=== PATIENT | male | born 1960 | race Caucasian/White ===

== ENCOUNTER 2018-02-14 09:59 | Inpatient (IN) | payer MEDICARE ==
[2018-02-14] MEDS: SODIUM CHLORIDE 0.9% 1L BAG IV* (10:22)
[2018-02-14] MEDS: CEFEPIME 2GM/50 ML (PMX) 50 ML IVPB (10:23)
[2018-02-14] MEDS: ACETAMINOPHEN 650 MG SUPP PR (10:24)
[2018-02-14] MEDS: LIDOCAINE 1% (MPF) 5 ML VIAL SC (10:30)
[2018-02-14] MEDS: VANCOMYCIN 1 GM (PMX) 250 ML IVPB (10:31)
[2018-02-14 10:39] LABS: WHITE BLOOD COUNT 14.4 10^3/ul (4.8-10.8)
[2018-02-14 10:39] LABS: ABNORMAL IP MESSAGE 1; HEMATOCRIT 15.4 % (42.0-52.0); MEAN CORPUSCULAR HEMOGLOBIN 36.4 pg (29.0-33.0); MEAN CORPUSCULAR HGB CONC 31.2 g/dl (32.0-37.0); MEAN CORPUSCULAR VOLUME 116.7 fl (82.0-101.0); MEAN PLATELET VOLUME 13.1 fl (7.4-10.4); NUCLEATED RED BLOOD CELLS% 0.8 /100WBC (0.0-0.0); PLATELET COUNT 130 10^3/UL (140-415); POSITIVE DIFF @See below; RED BLOOD COUNT 1.32 10^6/ul (4.70-6.10); RED CELL DISTRIBUTION WIDTH 24.6 % (11.5-14.5)
[2018-02-14 10:47] LABS: AADO2 Arterial 118.8 mmHg (7.0-24.0); Allen Test ACCEPTAB; Arterial Base Excess -8.9 mmol/L (-3.0-3); Arterial Blood Gas Oxygen Sat 98.5 mmHG (95.0-98.0); Arterial COHb 0.3 % (0.0-3.0); Arterial Fraction of Oxyhgb 97.7 % (93.0-99.0); Arterial HCO3 14.7 mmol/L (22.0-26.0); Arterial MetHb 0.5 % (0.0-1.5); Arterial Total Hemglobin 8.1 g/dl (12.0-18.0); Arterial pCO2 24.1 mmhg (35-45); MODE VENT - AC; Site Left Radial
[2018-02-14 10:48] LABS: ADD MAN DIFF? YES; HEMOGLOBIN 4.8 g/dl (14.0-18.0)
[2018-02-14] MEDS: SOD CHLORIDE 0.9% 250 ML IV* ×2 (10:55→11:09)
[2018-02-14 10:59] LABS: ALANINE AMINOTRANSFERASE 28 IU/L (13-69); ALBUMIN 2.2 g/dl (3.3-4.9); ALBUMIN/GLOBULIN RATIO 0.62; ALKALINE PHOSPHATASE 267 IU/L (42-121); ANION GAP 21 (8-16); ASPARTATE AMINO TRANSFERASE 28 IU/L (15-46); BILIRUBIN,INDIRECT 0.1 mg/dl (0-1.1); BILIRUBIN,TOTAL 0.1 mg/dl (0.2-1.3); BLOOD UREA NITROGEN 117 mg/dl (7-20); CALCIUM 8.6 mg/dl (8.4-10.2); CARBON DIOXIDE 17 mmol/L (21-31); CHLORIDE 111 mmol/L (97-110); CREATININE 3.13 mg/dl (0.61-1.24); GLUCOSE 148 mg/dl (70-220); POTASSIUM 5.4 mmol/L (3.5-5.1); SODIUM 144 mmol/L (135-144); TOTAL PROTEIN 5.7 g/dl (6.1-8.1)
[2018-02-14 11:00] LABS: INR 1.68; PARTIAL THROMBOPLASTIN TIME 42.3 Sec (23.0-35.0); PROTIME 20.1 Sec (11.9-14.9); PT RATIO 1.6
[2018-02-14 11:01] LABS: LACTIC ACID 2.6 mmol/L (0.5-2.0)
[2018-02-14 11:05] LABS: ADD UMIC YES; UR ASCORBIC ACID 20 mg/dL (NEGATIVE); UR BACTERIA FEW /HPF (NONE SEEN); UR BILIRUBIN (Dip) NEGATIVE (NEGATIVE); UR BLOOD (Dip) NEGATIVE (NEGATIVE); UR BUDDING YEAST MANY /HPF (NONE SEEN); UR CLARITY SLIGHTLY CLOUDY (CLEAR); UR COLOR YELLOW (YELLOW); UR GLUCOSE (Dip) NEGATIVE (NEGATIVE); UR KETONES (Dip) NEGATIVE (NEGATIVE); UR LEUKOCYTE ESTERASE (Dip) 2+ Leu/ul (NEGATIVE); UR MUCUS FEW /HPF (NONE SEEN); UR NITRITE (Dip) NEGATIVE (NEGATIVE); UR RBC 13 /HPF (0-5); UR SPECIFIC GRAVITY (Dip) 1.013 (1.003-1.030); UR TOTAL PROTEIN (Dip) 2+ mg/dl (NEGATIVE); UR UROBILINOGEN (Dip) NEGATIVE (NEGATIVE); UR WBC 45 /HPF (0-5)
[2018-02-14 11:07] LABS: BAND NEUTROPHILS #M 2.7 10^3/ul (0.0-0.6); BAND NEUTROPHILS % (M) 19 % (0-4); LYMPHOCYTES #M 0.2 10^3/ul (0.8-2.9); LYMPHOCYTES % (M) 2 % (15-51); MONOCYTE #M 0.1 10^3/ul (0.3-0.9); MONOCYTES % (M) 1 % (0-11); MYELOCYTES #M 0.2 10^3/ul (0.0-0.0); MYELOCYTES % (M) 2 % (0-0); PROMYELOCYTES #M 0.1 10^3/ul (0-0); PROMYELOCYTES % (M) 1 % (0-0); SEG NEUT #M 11.2 10^3/ul (1.6-7.5); SEGMENTED NEUTROPHILS (M) % 75 % (39-77)
[2018-02-14 11:10] LABS: TROPONIN-I < 0.012 ng/ml (0.000-0.120)
[2018-02-14] MEDS ORDERED: SOD CHLORIDE 0.9% 1,000 ML IV (11:19)
[2018-02-14] MEDS ORDERED: DOCUSATE SODIUM 100 MG CAP PO (11:30)
[2018-02-14] MEDS ORDERED: VANCOMYCIN IV PER PHARMACY XX ×2 (11:30→14:00)
[2018-02-14] MEDS ORDERED: NACL 0.9% 3 ML SYG IV (11:30)
[2018-02-14] MEDS ORDERED: ACETAMINOPHEN 650 MG SUPP PR (11:30)
[2018-02-14] MEDS ORDERED: ONDANSETRON 4 MG INJ IV (11:30)
[2018-02-14] MEDS ORDERED: MAGNESIUM HYDROXIDE 30ML CUP PO (11:30)
[2018-02-14] MEDS: SOD CHLORIDE 0.9% 1,800 ML IV (11:30)
[2018-02-14] MEDS ORDERED: morphine 2 MG INJ IV (11:30)
[2018-02-14] MEDS ORDERED: BISACODYL 10 MG SUPP PR (11:30)
[2018-02-14 12:06] LABS: CREATININE,URINE RANDOM 19.32 mg/dl (20-370); PROTEIN/CREAT RATIO 5.12 RATIO
[2018-02-14 13:00] LABS: IMMEDIATE SPIN CROSSMATCH 1 6
[2018-02-14] MEDS: LACTATED RINGER'S 1,000 ML IV (13:53)
[2018-02-14] MEDS: ALBUTEROL/IPRATROPIUM (NEB) 3 ML AMP HHN ×2 (14:00→19:32)
[2018-02-14 14:10] LABS: SODIUM,URINE RANDOM 29 mmol/L (30-90)
[2018-02-14] MEDS: MIDODRINE 5 MG TAB GTB ×2 (14:28→22:41)
[2018-02-14] MEDS: CASPOFUNGIN 70 MG in SOD CHLORIDE 0.9% 250 ML IVPB (14:28)
[2018-02-14] MEDS: MEROPENEM 500MG/50 ML (PMX) 50 ML IVPB ×2 (14:28→22:41)
[2018-02-14] MEDS: NORepinephrine 8MG/250 ML (PMX 250 ML IV (14:58)
[2018-02-14] MEDS: SODIUM BICARBONATE (IV ADD) 100 MEQ in DEXTROSE 5% 1,000 ML IV (15:35)
[2018-02-14 15:37] LABS: IRON 31 ug/dl (35-150)
[2018-02-14 15:46] LABS: % IRON SATURATION 26 % SAT (22-52); TOTAL IRON BINDING CAPACITY 120 ug/dl (241-421)
[2018-02-14] MEDS: FUROSEMIDE 40 MG INJ IV (16:08)
[2018-02-14] MEDS: INFLUENZA VIRUS VACCINE 0.5 ML (DISPENSING) IM* (17:27)
[2018-02-14 19:33] LABS: LACTIC ACID 2.6 mmol/L (0.5-2.0)
[2018-02-14] MEDS: BUDESONIDE (NEB) 0.5MG/2ML AMP HHN (19:33)
[2018-02-14 21:46] LABS: ABNORMAL IP MESSAGE 1; HEMATOCRIT 25.6 % (42.0-52.0); HEMOGLOBIN 8.4 g/dl (14.0-18.0); MEAN CORPUSCULAR HEMOGLOBIN 32.7 pg (29.0-33.0); MEAN CORPUSCULAR HGB CONC 32.8 g/dl (32.0-37.0); MEAN CORPUSCULAR VOLUME 99.6 fl (82.0-101.0); MEAN PLATELET VOLUME 13.1 fl (7.4-10.4); NUCLEATED RED BLOOD CELLS% 0.7 /100WBC (0.0-0.0); PLATELET COUNT 120 10^3/UL (140-415); POSITIVE DIFF @See below; RED BLOOD COUNT 2.57 10^6/ul (4.70-6.10); RED CELL DISTRIBUTION WIDTH 21.3 % (11.5-14.5)
[2018-02-14 21:46] LABS: WHITE BLOOD COUNT 13.6 10^3/ul (4.8-10.8)
[2018-02-14 21:51] LABS: ADD MAN DIFF? YES
[2018-02-14] MEDS ORDERED: CEFEPIME 2GM/50 ML (PMX) 50 ML IVPB (22:00)
[2018-02-14 22:08] LABS: LACTIC ACID 2.4 mmol/L (0.5-2.0)
[2018-02-14 22:24] LABS: ANISOCYTOSIS 2+ (0-0); BAND NEUTROPHILS #M 0.9 10^3/ul (0.0-0.6); BAND NEUTROPHILS % (M) 7 % (0-4); BASOPHIL #M 0.1 10^3/ul (0.0-0.0); BASOPHILS % (M) 1 % (0-2); EOSINOPHILS % (M) 1 % (0-7); ERYTHROBLAST% (NRBC) (M) 1 % (0-0); GIANT THROMBO% (M) 2 % (0-0); LYMPHOCYTES #M 0.4 10^3/ul (0.8-2.9); LYMPHOCYTES % (M) 3 % (15-51); METAMYELOCYTES #M 0.1 10^3/ul (0.0-0.0); METAMYELOCYTES %M 1 % (0-0); MONOCYTE #M 0.1 10^3/ul (0.3-0.9); MONOCYTES % (M) 1 % (0-11); MYELOCYTES #M 0.1 10^3/ul (0.0-0.0); MYELOCYTES % (M) 1 % (0-0); POIKILOCYTOSIS 1+ (0-0); PROMYELOCYTES #M 0.1 10^3/ul (0-0); PROMYELOCYTES % (M) 1 % (0-0); SEG NEUT #M 11.5 10^3/ul (1.6-7.5); SEGMENTED NEUTROPHILS (M) % 84 % (39-77); SMUDGE%M 52 % (0-0)
[2018-02-15] MEDS: SODIUM BICARBONATE (IV ADD) 100 MEQ in DEXTROSE 5% 1,000 ML IV ×3 (00:17→18:28)
[2018-02-15] MEDS: ALBUTEROL/IPRATROPIUM (NEB) 3 ML AMP HHN ×4 (01:27→19:07)
[2018-02-15 05:01] LABS: AADO2 Arterial 87.4 mmHg (7.0-24.0); Arterial Base Excess -7.3 mmol/L (-3.0-3); Arterial Blood Gas Oxygen Sat 96.4 mmHG (95.0-98.0); Arterial COHb 0.4 % (0.0-3.0); Arterial Fraction of Oxyhgb 95.6 % (93.0-99.0); Arterial HCO3 16.8 mmol/L (22.0-26.0); Arterial MetHb 0.4 % (0.0-1.5); Arterial Total Hemglobin 9.1 g/dl (12.0-18.0); Arterial pCO2 28.7 mmhg (35-45); MODE VENT - AC; Site Right Brachial
[2018-02-15 05:31] LABS: ADD MAN DIFF? NO
[2018-02-15 05:54] LABS: ABNORMAL IP MESSAGE 1; BASOPHILS % 0.2 % (0.0-2.0); EOSINOPHILS % 0.2 % (0.0-7.0); HEMATOCRIT 24.6 % (42.0-52.0); HEMOGLOBIN 8.2 g/dl (14.0-18.0); LYMPHOCYTES # 0.3 10^3/ul (0.8-2.9); LYMPHOCYTES % 2.5 % (15.0-51.0); MEAN CORPUSCULAR HEMOGLOBIN 32.9 pg (29.0-33.0); MEAN CORPUSCULAR HGB CONC 33.3 g/dl (32.0-37.0); MEAN CORPUSCULAR VOLUME 98.8 fl (82.0-101.0); MONOCYTE # 0.4 10^3/ul (0.3-0.9); MONOCYTES % 3.2 % (0.0-11.0); NEUTROPHIL # 11.1 10^3/ul (1.6-7.5); NEUTROPHILS % 85.6 % (39.0-77.0); NUCLEATED RED BLOOD CELLS # 0.1 10^3/ul (0.0-0.0); NUCLEATED RED BLOOD CELLS% 0.5 /100WBC (0.0-0.0); PLATELET COUNT 106 10^3/UL (140-415); POSITIVE DIFF @See below; RED BLOOD COUNT 2.49 10^6/ul (4.70-6.10); RED CELL DISTRIBUTION WIDTH 21.9 % (11.5-14.5)
[2018-02-15 05:55] LABS: INR 1.79; PROTIME 21.2 Sec (11.9-14.9); PT RATIO 1.7
[2018-02-15 06:05] LABS: HEMOGLOBIN A1C 5.3 % (0-5.9)
[2018-02-15] MEDS: PANTOPRAZOLE 40 MG INJ IV (06:05)
[2018-02-15] MEDS: MIDODRINE 5 MG TAB GTB ×3 (06:05→21:27)
[2018-02-15] MEDS: LEVOTHYROXINE 88 MCG TAB PO (06:14)
[2018-02-15 06:16] LABS: LACTIC ACID 2.1 mmol/L (0.5-2.0)
[2018-02-15 06:25] LABS: URIC ACID 6.3 mg/dl (3.1-7.9)
[2018-02-15 06:27] LABS: CREATINE KINASE < 20 IU/L (23-200)
[2018-02-15 06:36] LABS: ALANINE AMINOTRANSFERASE 17 IU/L (13-69); ALBUMIN/GLOBULIN RATIO 0.58; ALKALINE PHOSPHATASE 217 IU/L (42-121); ANION GAP 16 (8-16); ASPARTATE AMINO TRANSFERASE 26 IU/L (15-46); BILIRUBIN,INDIRECT 0.2 mg/dl (0-1.1); BILIRUBIN,TOTAL 0.2 mg/dl (0.2-1.3); BLOOD UREA NITROGEN 102 mg/dl (7-20); CALCIUM 8.4 mg/dl (8.4-10.2); CARBON DIOXIDE 19 mmol/L (21-31); CHLORIDE 112 mmol/L (97-110); CREATININE 2.89 mg/dl (0.61-1.24); GLUCOSE 116 mg/dl (70-220); HDL CHOLESTEROL 8 mg/dl (30-78); MAGNESIUM 2.4 mg/dl (1.7-2.5); PHOSPHORUS 8.3 mg/dl (2.5-4.9); POTASSIUM 4.1 mmol/L (3.5-5.1); SODIUM 143 mmol/L (135-144); TOTAL PROTEIN 5.4 g/dl (6.1-8.1); TRIGLYCERIDES 122 mg/dl (0-149)
[2018-02-15 06:37] LABS: CHOLESTEROL < 50 mg/dl (100-200)
[2018-02-15 06:38] LABS: FREE THYROXINE INDEX (Calc) 2.03 ug/ml (0.65-3.89); T3 UPTAKE 52.1 % (23.5-40.5); T4 (THYROXINE) 3.9 ug/dl (5.5-11.0)
[2018-02-15 06:52] LABS: THYROID STIMULATING HORMONE 0.732 MIU/L (0.465-4.680)
[2018-02-15 07:31] LABS: ANISOCYTOSIS 2+ (0-0); BAND NEUTROPHILS #M 3.3 10^3/ul (0.0-0.6); BAND NEUTROPHILS % (M) 26 % (0-4); BASOPHIL #M 0.1 10^3/ul (0.0-0.0); BASOPHILS % (M) 1 % (0-2); ERYTHROBLAST% (NRBC) (M) 2 % (0-0); HYPOCHROMASIA 1+ (0-0); LYMPHOCYTES #M 0.3 10^3/ul (0.8-2.9); LYMPHOCYTES % (M) 3 % (15-51); METAMYELOCYTES #M 0.2 10^3/ul (0.0-0.0); METAMYELOCYTES %M 2 % (0-0); MICROCYTOSIS 1+ (0-0); MONOCYTE #M 0.2 10^3/ul (0.3-0.9); MONOCYTES % (M) 2 % (0-11); MYELOCYTES #M 0.2 10^3/ul (0.0-0.0); MYELOCYTES % (M) 2 % (0-0); PLATELET ESTIMATE DECREASED; POIKILOCYTOSIS 1+ (0-0); POLYCHROMASIA 1+ (0-0); PROMYELOCYTES #M 0.2 10^3/ul (0-0); PROMYELOCYTES % (M) 2 % (0-0); REACTIVE LYMPHOCYTES #M 0.5 10^3/ul (0.0-0.0); REACTIVE LYMPHOCYTES% (M) 4 % (0-0); SEGMENTED NEUTROPHILS (M) % 58 % (39-77); TARGET CELLS 1+ (0-0)
[2018-02-15] MEDS: BUDESONIDE (NEB) 0.5MG/2ML AMP HHN ×2 (08:12→19:07)
[2018-02-15] MEDS: LACTOBACILLUS RHAMNOSUS CAP GTB (08:36)
[2018-02-15] MEDS: MEROPENEM 500MG/50 ML (PMX) 50 ML IVPB ×2 (08:36→21:24)
[2018-02-15] MEDS: CASPOFUNGIN 50 MG in SOD CHLORIDE 0.9% 250 ML IVPB (14:29)
[2018-02-15] MEDS: VANCOMYCIN 750 MG in SOD CHLORIDE 0.9% 150 ML IVPB (22:54)
[2018-02-16] MEDS: ALBUTEROL/IPRATROPIUM (NEB) 3 ML AMP HHN ×3 (01:00→14:56)
[2018-02-16 04:06] LABS: OCCULT BLOOD STOOL POSITIVE (NEGATIVE)
[2018-02-16 05:15] LABS: ADD MAN DIFF? NO
[2018-02-16 05:19] LABS: ABNORMAL IP MESSAGE 1; BASOPHILS % 0.2 % (0.0-2.0); EOSINOPHILS # 0.1 10^3/ul (0.0-0.5); EOSINOPHILS % 0.4 % (0.0-7.0); HEMATOCRIT 22.4 % (42.0-52.0); HEMOGLOBIN 7.4 g/dl (14.0-18.0); LYMPHOCYTES # 0.9 10^3/ul (0.8-2.9); LYMPHOCYTES % 6.6 % (15.0-51.0); MEAN CORPUSCULAR HEMOGLOBIN 32.6 pg (29.0-33.0); MEAN CORPUSCULAR VOLUME 98.7 fl (82.0-101.0); MEAN PLATELET VOLUME 12.5 fl (7.4-10.4); MONOCYTE # 0.2 10^3/ul (0.3-0.9); MONOCYTES % 1.2 % (0.0-11.0); NEUTROPHIL # 10.9 10^3/ul (1.6-7.5); NEUTROPHILS % 84.3 % (39.0-77.0); NUCLEATED RED BLOOD CELLS% 0.2 /100WBC (0.0-0.0); PLATELET COUNT 93 10^3/UL (140-415); POSITIVE DIFF @See below; RED BLOOD COUNT 2.27 10^6/ul (4.70-6.10)
[2018-02-16] MEDS: PANTOPRAZOLE 40 MG INJ IV (05:23)
[2018-02-16] MEDS: MIDODRINE 5 MG TAB GTB ×3 (05:23→21:24)
[2018-02-16 06:03] LABS: ALANINE AMINOTRANSFERASE 32 IU/L (13-69); ALBUMIN 1.9 g/dl (3.3-4.9); ALBUMIN/GLOBULIN RATIO 0.57; ALKALINE PHOSPHATASE 222 IU/L (42-121); ANION GAP 13 (8-16); ASPARTATE AMINO TRANSFERASE 24 IU/L (15-46); BILIRUBIN,INDIRECT 0.1 mg/dl (0-1.1); BILIRUBIN,TOTAL 0.1 mg/dl (0.2-1.3); BLOOD UREA NITROGEN 97 mg/dl (7-20); CALCIUM 8.4 mg/dl (8.4-10.2); CARBON DIOXIDE 22 mmol/L (21-31); CHLORIDE 109 mmol/L (97-110); GLUCOSE 93 mg/dl (70-220); POTASSIUM 3.4 mmol/L (3.5-5.1); SODIUM 141 mmol/L (135-144); TOTAL PROTEIN 5.2 g/dl (6.1-8.1)
[2018-02-16] MEDS: LEVOTHYROXINE 88 MCG TAB PO (08:10)
[2018-02-16] MEDS: LACTOBACILLUS RHAMNOSUS CAP GTB (08:11)
[2018-02-16] MEDS: MEROPENEM 500MG/50 ML (PMX) 50 ML IVPB (08:11)
[2018-02-16] MEDS: BUDESONIDE (NEB) 0.5MG/2ML AMP HHN ×2 (09:05→19:00)
[2018-02-16] MEDS: SODIUM BICARBONATE (IV ADD) 100 MEQ in DEXTROSE 5% 1,000 ML IV ×2 (09:25→23:10)
[2018-02-16 10:49] LABS: ANISOCYTOSIS 1+ (0-0); BAND NEUTROPHILS #M 0.7 10^3/ul (0.0-0.6); BAND NEUTROPHILS % (M) 6 % (0-4); BURR CELLS 1+ (0-0); ERYTHROBLAST% (NRBC) (M) 1 % (0-0); LYMPHOCYTES #M 0.2 10^3/ul (0.8-2.9); LYMPHOCYTES % (M) 2 % (15-51); MONOCYTE #M 0.5 10^3/ul (0.3-0.9); MONOCYTES % (M) 4 % (0-11); MYELOCYTES #M 0.2 10^3/ul (0.0-0.0); MYELOCYTES % (M) 2 % (0-0); PLATELET ESTIMATE DECREASED; PLATELET MORPHOLOGY COMMENT @See below; POLYCHROMASIA 1+ (0-0); PROMYELOCYTES #M 0.2 10^3/ul (0-0); PROMYELOCYTES % (M) 2 % (0-0); SEGMENTED NEUTROPHILS (M) % 84 % (39-77); SMUDGE%M 7 % (0-0); TARGET CELLS 1+ (0-0)
[2018-02-16] MEDS ORDERED: VANCOMYCIN 1 GM 250 ML IVPB (11:00)
[2018-02-16] MEDS: LIDOCAINE 1% (MPF) 5 ML VIAL (12:03)
[2018-02-16] MEDS ORDERED: AMIKACIN IV PER PHARMACY XX (14:00)
[2018-02-16 14:13] LABS: FLUID TOTAL PROTEIN 2.5 g/dl
[2018-02-16] MEDS: HEPARIN 5,000 UNIT/0.5 ML VIAL SC ×2 (15:08→21:26)
[2018-02-16] MEDS: metroNIDAZOLE 500 MG TAB NGT ×2 (15:13→21:24)
[2018-02-16] MEDS: CLINDAMYCIN 600 MG/D5W (PMX) 50 ML IVPB ×2 (16:44→22:14)
[2018-02-16] MEDS: AMIKACIN 300 MG in SOD CHLORIDE 0.9% 100 ML IVPB (18:26)
[2018-02-16] MEDS ORDERED: ALBUTEROL HFA 8 GM INHALER (18:58)
[2018-02-16] MEDS ORDERED: IPRATROPIUM (HFA) 12.9 GM INHALER INH (18:59)
[2018-02-16] MEDS: IPRATROPIUM (HFA) 12.9 GM INHALER INH (19:00)
[2018-02-16] MEDS: ALBUTEROL HFA 8 GM INHALER INH (19:00)
[2018-02-16] MEDS: BALSAM PERU/CASTOR OIL 60 GM TUBE TOP (20:47)
[2018-02-17] MEDS: IPRATROPIUM (HFA) 12.9 GM INHALER INH ×4 (01:00→19:54)
[2018-02-17] MEDS: ALBUTEROL HFA 8 GM INHALER INH ×4 (01:00→19:53)
[2018-02-17 05:23] LABS: ADD MAN DIFF? NO
[2018-02-17] MEDS: metroNIDAZOLE 500 MG TAB NGT ×3 (05:25→22:20)
[2018-02-17] MEDS: MIDODRINE 5 MG TAB GTB ×3 (05:25→22:20)
[2018-02-17] MEDS: HEPARIN 5,000 UNIT/0.5 ML VIAL SC ×3 (05:28→22:21)
[2018-02-17 05:38] LABS: ABNORMAL IP MESSAGE 1; BASOPHILS % 0.2 % (0.0-2.0); EOSINOPHILS % 0.4 % (0.0-7.0); HEMATOCRIT 21.4 % (42.0-52.0); HEMOGLOBIN 7.1 g/dl (14.0-18.0); LYMPHOCYTES # 0.6 10^3/ul (0.8-2.9); LYMPHOCYTES % 5.3 % (15.0-51.0); MEAN CORPUSCULAR HGB CONC 33.2 g/dl (32.0-37.0); MEAN CORPUSCULAR VOLUME 99.5 fl (82.0-101.0); MONOCYTE # 0.6 10^3/ul (0.3-0.9); MONOCYTES % 4.9 % (0.0-11.0); NEUTROPHIL # 9.2 10^3/ul (1.6-7.5); NEUTROPHILS % 82.5 % (39.0-77.0); NUCLEATED RED BLOOD CELLS% 0.2 /100WBC (0.0-0.0); PLATELET COUNT 88 10^3/UL (140-415); POSITIVE DIFF @See below; RED BLOOD COUNT 2.15 10^6/ul (4.70-6.10); RED CELL DISTRIBUTION WIDTH 21.5 % (11.5-14.5)
[2018-02-17 05:38] LABS: WHITE BLOOD COUNT 11.2 10^3/ul (4.8-10.8)
[2018-02-17] MEDS: PANTOPRAZOLE 40 MG INJ IV (06:05)
[2018-02-17] MEDS: CLINDAMYCIN 600 MG/D5W (PMX) 50 ML IVPB ×2 (06:07→13:14)
[2018-02-17 06:25] LABS: ALBUMIN 2.1 g/dl (3.3-4.9); ALBUMIN/GLOBULIN RATIO 0.65; ALKALINE PHOSPHATASE 287 IU/L (42-121); ANION GAP 14 (8-16); ASPARTATE AMINO TRANSFERASE 25 IU/L (15-46); BLOOD UREA NITROGEN 90 mg/dl (7-20); CALCIUM 7.9 mg/dl (8.4-10.2); CARBON DIOXIDE 24 mmol/L (21-31); CHLORIDE 106 mmol/L (97-110); CREATININE 2.55 mg/dl (0.61-1.24); GLUCOSE 103 mg/dl (70-220); SODIUM 141 mmol/L (135-144); TOTAL PROTEIN 5.3 g/dl (6.1-8.1)
[2018-02-17 06:52] LABS: POTASSIUM 2.9 mmol/L (3.5-5.1)
[2018-02-17 07:08] LABS: ALANINE AMINOTRANSFERASE 28 IU/L (13-69)
[2018-02-17] MEDS: POTASSIUM CHLORIDE 100 ML IVPB ×3 (07:53→11:48)
[2018-02-17 07:54] LABS: MAGNESIUM 2.1 mg/dl (1.7-2.5)
[2018-02-17] MEDS: FLUCONAZOLE 100 MG TAB PO (08:37)
[2018-02-17] MEDS: BALSAM PERU/CASTOR OIL 60 GM TUBE TOP ×2 (08:37→20:53)
[2018-02-17] MEDS: LACTOBACILLUS RHAMNOSUS CAP GTB (08:37)
[2018-02-17] MEDS: LEVOTHYROXINE 88 MCG TAB PO (08:37)
[2018-02-17] MEDS: BUDESONIDE (NEB) 0.5MG/2ML AMP HHN ×2 (08:45→19:53)
[2018-02-17] MEDS: SOD CHLORIDE 0.9% 500 ML IV (13:14)
[2018-02-17 14:04] LABS: FOLATE > 20.0 ng/ml (2.8-20.0)
[2018-02-17 15:50] LABS: ADD MAN DIFF? NO
[2018-02-17 16:11] LABS: BLOOD UREA NITROGEN 90 mg/dl (7-20); CARBON DIOXIDE 22 mmol/L (21-31); CHLORIDE 104 mmol/L (97-110); CREATININE 2.58 mg/dl (0.61-1.24); GLUCOSE 125 mg/dl (70-220); POTASSIUM 3.9 mmol/L (3.5-5.1); SODIUM 138 mmol/L (135-144)
[2018-02-17 16:48] LABS: WHITE BLOOD COUNT 12.1 10^3/ul (4.8-10.8)
[2018-02-17 16:48] LABS: ABNORMAL IP MESSAGE 1; BASOPHILS % 0.2 % (0.0-2.0); EOSINOPHILS # 0.1 10^3/ul (0.0-0.5); EOSINOPHILS % 0.4 % (0.0-7.0); HEMATOCRIT 21.7 % (42.0-52.0); HEMOGLOBIN 7.1 g/dl (14.0-18.0); LYMPHOCYTES # 0.7 10^3/ul (0.8-2.9); LYMPHOCYTES % 5.9 % (15.0-51.0); MEAN CORPUSCULAR HEMOGLOBIN 32.7 pg (29.0-33.0); MEAN CORPUSCULAR HGB CONC 32.7 g/dl (32.0-37.0); MEAN PLATELET VOLUME 13.1 fl (7.4-10.4); MONOCYTE # 0.7 10^3/ul (0.3-0.9); MONOCYTES % 6.1 % (0.0-11.0); NEUTROPHIL # 9.7 10^3/ul (1.6-7.5); NEUTROPHILS % 80.4 % (39.0-77.0); NUCLEATED RED BLOOD CELLS% 0.2 /100WBC (0.0-0.0); PLATELET COUNT 82 10^3/UL (140-415); POSITIVE DIFF @See below; RED BLOOD COUNT 2.17 10^6/ul (4.70-6.10); RED CELL DISTRIBUTION WIDTH 21.9 % (11.5-14.5)
[2018-02-17 19:27] LABS: ANISOCYTOSIS 2+ (0-0); BAND NEUTROPHILS #M 0.2 10^3/ul (0.0-0.6); BAND NEUTROPHILS % (M) 2 % (0-4); LYMPHOCYTES #M 0.1 10^3/ul (0.8-2.9); LYMPHOCYTES % (M) 1 % (15-51); MICROCYTOSIS 1+ (0-0); MONOCYTE #M 0.4 10^3/ul (0.3-0.9); MONOCYTES % (M) 4 % (0-11); PLATELET MORPHOLOGY COMMENT @See below; SEG NEUT #M 11.3 10^3/ul (1.6-7.5); SEGMENTED NEUTROPHILS (M) % 93 % (39-77); SMUDGE%M 7 % (0-0)
[2018-02-18] MEDS: CLINDAMYCIN 600 MG/D5W (PMX) 50 ML IVPB ×4 (00:06→21:30)
[2018-02-18] MEDS: IPRATROPIUM (HFA) 12.9 GM INHALER INH ×4 (01:58→20:14)
[2018-02-18] MEDS: ALBUTEROL HFA 8 GM INHALER INH ×4 (01:58→20:14)
[2018-02-18 05:15] LABS: ADD MAN DIFF? NO
[2018-02-18] MEDS: MIDODRINE 5 MG TAB GTB ×3 (05:17→21:30)
[2018-02-18] MEDS: PANTOPRAZOLE 40 MG INJ IV (05:17)
[2018-02-18] MEDS: metroNIDAZOLE 500 MG TAB NGT ×3 (05:17→21:30)
[2018-02-18] MEDS: HEPARIN 5,000 UNIT/0.5 ML VIAL SC (05:20)
[2018-02-18 05:25] LABS: WHITE BLOOD COUNT 13.6 10^3/ul (4.8-10.8)
[2018-02-18 05:25] LABS: ABNORMAL IP MESSAGE 1; BASOPHILS % 0.1 % (0.0-2.0); EOSINOPHILS % 0.1 % (0.0-7.0); HEMATOCRIT 22.3 % (42.0-52.0); HEMOGLOBIN 7.2 g/dl (14.0-18.0); LYMPHOCYTES # 0.8 10^3/ul (0.8-2.9); LYMPHOCYTES % 5.5 % (15.0-51.0); MEAN CORPUSCULAR HEMOGLOBIN 32.7 pg (29.0-33.0); MEAN CORPUSCULAR HGB CONC 32.3 g/dl (32.0-37.0); MEAN CORPUSCULAR VOLUME 101.4 fl (82.0-101.0); MEAN PLATELET VOLUME 13.1 fl (7.4-10.4); MONOCYTE # 0.9 10^3/ul (0.3-0.9); MONOCYTES % 6.6 % (0.0-11.0); NEUTROPHILS % 80.8 % (39.0-77.0); NUCLEATED RED BLOOD CELLS% 0.1 /100WBC (0.0-0.0); PLATELET COUNT 89 10^3/UL (140-415); POSITIVE DIFF @See below; RED CELL DISTRIBUTION WIDTH 21.8 % (11.5-14.5)
[2018-02-18] MEDS: LEVOTHYROXINE 88 MCG TAB PO (06:44)
[2018-02-18 06:55] LABS: ALANINE AMINOTRANSFERASE 23 IU/L (13-69); ALBUMIN 2.3 g/dl (3.3-4.9); ALBUMIN/GLOBULIN RATIO 0.67; ALKALINE PHOSPHATASE 302 IU/L (42-121); ASPARTATE AMINO TRANSFERASE 22 IU/L (15-46); BLOOD UREA NITROGEN 89 mg/dl (7-20); CALCIUM 7.8 mg/dl (8.4-10.2); CARBON DIOXIDE 22 mmol/L (21-31); CHLORIDE 108 mmol/L (97-110); CREATININE 2.55 mg/dl (0.61-1.24); GLUCOSE 109 mg/dl (70-220); POTASSIUM 3.5 mmol/L (3.5-5.1); SODIUM 142 mmol/L (135-144); TOTAL PROTEIN 5.7 g/dl (6.1-8.1)
[2018-02-18 08:25] LABS: ANION GAP 12 (5-13)
[2018-02-18] MEDS: BUDESONIDE (NEB) 0.5MG/2ML AMP HHN ×2 (08:32→20:13)
[2018-02-18 09:00] LABS: ANISOCYTOSIS 1+ (0-0); BAND NEUTROPHILS #M 0.6 10^3/ul (0.0-0.6); BAND NEUTROPHILS % (M) 5 % (0-4); HYPOCHROMASIA 1+ (0-0); LYMPHOCYTES #M 0.4 10^3/ul (0.8-2.9); LYMPHOCYTES % (M) 3 % (15-51); MONOCYTE #M 0.4 10^3/ul (0.3-0.9); MONOCYTES % (M) 3 % (0-11); MYELOCYTES #M 0.1 10^3/ul (0.0-0.0); MYELOCYTES % (M) 1 % (0-0); PLASMA CELLS #M 0.1 10^3/ul (0.0-0.0); PLASMAC%(M) 1 % (0); PLATELET ESTIMATE DECREASED; POIKILOCYTOSIS 1+ (0-0); POLYCHROMASIA 1+ (0-0); PROMYELOCYTES #M 0.2 10^3/ul (0-0); PROMYELOCYTES % (M) 2 % (0-0); SEG NEUT #M 11.6 10^3/ul (1.6-7.5); SEGMENTED NEUTROPHILS (M) % 85 % (39-77); SMUDGE%M 2 % (0-0); TARGET CELLS 1+ (0-0)
[2018-02-18 09:23] LABS: ANION GAP 12 (5-13)
[2018-02-18] MEDS: FLUCONAZOLE 100 MG TAB PO (09:46)
[2018-02-18] MEDS: LACTOBACILLUS RHAMNOSUS CAP GTB (09:46)
[2018-02-18] MEDS: BALSAM PERU/CASTOR OIL 60 GM TUBE TOP ×2 (09:47→20:09)
[2018-02-18] MEDS: LEVOFLOXACIN 500MG/D5W (PMX) 100 ML IVPB (12:28)
[2018-02-18] MEDS ORDERED: HEPARIN 5,000 UNIT/0.5 ML VIAL ×2 (14:09→21:37)
[2018-02-18] MEDS: HEPARIN SODIUM 5,000 UNIT/ML VIAL SC ×2 (14:21→21:39)
[2018-02-18 16:45] LABS: IMMEDIATE SPIN CROSSMATCH 1 2
[2018-02-19] MEDS: ALBUTEROL HFA 8 GM INHALER INH ×4 (01:21→19:45)
[2018-02-19] MEDS: IPRATROPIUM (HFA) 12.9 GM INHALER INH ×4 (01:21→19:45)
[2018-02-19] MEDS: PANTOPRAZOLE 40 MG INJ IV (05:18)
[2018-02-19] MEDS: LEVOTHYROXINE 88 MCG TAB PO (05:18)
[2018-02-19] MEDS: metroNIDAZOLE 500 MG TAB NGT ×3 (05:18→22:07)
[2018-02-19] MEDS: CLINDAMYCIN 600 MG/D5W (PMX) 50 ML IVPB ×3 (05:18→22:07)
[2018-02-19] MEDS: MIDODRINE 5 MG TAB GTB ×3 (05:18→22:07)
[2018-02-19] MEDS: HEPARIN SODIUM 5,000 UNIT/ML VIAL SC (05:21)
[2018-02-19 05:33] LABS: ABNORMAL IP MESSAGE 1; HEMATOCRIT 32.1 % (42.0-52.0); HEMOGLOBIN 10.7 g/dl (14.0-18.0); MEAN CORPUSCULAR HEMOGLOBIN 31.5 pg (29.0-33.0); MEAN CORPUSCULAR HGB CONC 33.3 g/dl (32.0-37.0); MEAN CORPUSCULAR VOLUME 94.4 fl (82.0-101.0); MEAN PLATELET VOLUME 12.5 fl (7.4-10.4); PLATELET COUNT 61 10^3/UL (140-415); POSITIVE DIFF @See below; RED CELL DISTRIBUTION WIDTH 20.7 % (11.5-14.5)
[2018-02-19 05:33] LABS: WHITE BLOOD COUNT 14.1 10^3/ul (4.8-10.8)
[2018-02-19 05:56] LABS: ADD MAN DIFF? YES
[2018-02-19 06:07] LABS: ALANINE AMINOTRANSFERASE 27 IU/L (13-69); ALBUMIN 2.1 g/dl (3.3-4.9); ALBUMIN/GLOBULIN RATIO 0.61; ALKALINE PHOSPHATASE 288 IU/L (42-121); ANION GAP 11 (5-13); ASPARTATE AMINO TRANSFERASE 26 IU/L (15-46); BILIRUBIN,INDIRECT 0.2 mg/dl (0-1.1); BILIRUBIN,TOTAL 0.2 mg/dl (0.2-1.3); BLOOD UREA NITROGEN 90 mg/dl (7-20); CALCIUM 8.3 mg/dl (8.4-10.2); CARBON DIOXIDE 23 mmol/L (21-31); CHLORIDE 109 mmol/L (97-110); CREATININE 2.58 mg/dl (0.61-1.24); GLUCOSE 106 mg/dl (70-220); POTASSIUM 3.1 mmol/L (3.5-5.1); SODIUM 143 mmol/L (135-144); TOTAL PROTEIN 5.5 g/dl (6.1-8.1)
[2018-02-19 07:19] LABS: ANISOCYTOSIS 1+ (0-0); BASOPHIL #M 0.1 10^3/ul (0.0-0.0); BASOPHILS % (M) 1 % (0-2); EOSINOPHILS % (M) 1 % (0-7); LYMPHOCYTES #M 0.2 10^3/ul (0.8-2.9); LYMPHOCYTES % (M) 2 % (15-51); METAMYELOCYTES #M 0.1 10^3/ul (0.0-0.0); METAMYELOCYTES %M 1 % (0-0); MONOCYTE #M 0.9 10^3/ul (0.3-0.9); MONOCYTES % (M) 7 % (0-11); OVALOCYTES 1+ (0-0); PLATELET ESTIMATE SIG DECREASED; REACTIVE LYMPHOCYTES #M 0.5 10^3/ul (0.0-0.0); REACTIVE LYMPHOCYTES% (M) 4 % (0-0); SEGMENTED NEUTROPHILS (M) % 84 % (39-77); SMUDGE%M 31 % (0-0); SPHEROCYTES 1+ (0-0); TARGET CELLS 1+ (0-0)
[2018-02-19] MEDS: BUDESONIDE (NEB) 0.5MG/2ML AMP HHN ×2 (08:13→19:46)
[2018-02-19] MEDS: FLUCONAZOLE 100 MG TAB PO (09:01)
[2018-02-19] MEDS: LACTOBACILLUS RHAMNOSUS CAP GTB (09:01)
[2018-02-19] MEDS: POTASSIUM CHLORIDE 20 MEQ POWDER FOR ORAL SOLN GTB (09:02)
[2018-02-19] MEDS: BALSAM PERU/CASTOR OIL 60 GM TUBE TOP ×2 (09:08→22:06)
[2018-02-19] MEDS: LEVOFLOXACIN 500MG/D5W (PMX) 100 ML IVPB (13:03)
[2018-02-19] MEDS: SODIUM HYPOCHLORITE (1/40) 1 APPLIC BTL IRR ×2 (16:00→23:00)
[2018-02-20] MEDS: IPRATROPIUM (HFA) 12.9 GM INHALER INH ×4 (01:35→20:15)
[2018-02-20] MEDS: ALBUTEROL HFA 8 GM INHALER INH ×4 (01:35→20:15)
[2018-02-20 05:30] LABS: ADD MAN DIFF? NO
[2018-02-20] MEDS: metroNIDAZOLE 500 MG TAB NGT ×3 (05:37→21:28)
[2018-02-20] MEDS: PANTOPRAZOLE 40 MG INJ IV (05:37)
[2018-02-20] MEDS: MIDODRINE 5 MG TAB GTB ×3 (05:37→21:28)
[2018-02-20 05:38] LABS: ABNORMAL IP MESSAGE 1; BASOPHIL # 0.1 10^3/ul (0.0-0.1); BASOPHILS % 0.3 % (0.0-2.0); EOSINOPHILS # 0.1 10^3/ul (0.0-0.5); EOSINOPHILS % 0.5 % (0.0-7.0); HEMATOCRIT 31.3 % (42.0-52.0); HEMOGLOBIN 10.3 g/dl (14.0-18.0); LYMPHOCYTES # 0.8 10^3/ul (0.8-2.9); LYMPHOCYTES % 5.3 % (15.0-51.0); MEAN CORPUSCULAR HEMOGLOBIN 31.8 pg (29.0-33.0); MEAN CORPUSCULAR HGB CONC 32.9 g/dl (32.0-37.0); MEAN CORPUSCULAR VOLUME 96.6 fl (82.0-101.0); MONOCYTES % 6.9 % (0.0-11.0); NEUTROPHILS % 79.5 % (39.0-77.0); PLATELET COUNT 54 10^3/UL (140-415); POSITIVE DIFF @See below; RED BLOOD COUNT 3.24 10^6/ul (4.70-6.10); RED CELL DISTRIBUTION WIDTH 21.3 % (11.5-14.5)
[2018-02-20 05:38] LABS: WHITE BLOOD COUNT 15.1 10^3/ul (4.8-10.8)
[2018-02-20] MEDS: CLINDAMYCIN 600 MG/D5W (PMX) 50 ML IVPB ×3 (05:38→21:28)
[2018-02-20 06:08] LABS: ALANINE AMINOTRANSFERASE 21 IU/L (13-69); ALBUMIN 2.2 g/dl (3.3-4.9); ALBUMIN/GLOBULIN RATIO 0.62; ALKALINE PHOSPHATASE 268 IU/L (42-121); ANION GAP 12 (5-13); ASPARTATE AMINO TRANSFERASE 22 IU/L (15-46); BILIRUBIN,INDIRECT 0.1 mg/dl (0-1.1); BILIRUBIN,TOTAL 0.1 mg/dl (0.2-1.3); BLOOD UREA NITROGEN 89 mg/dl (7-20); CALCIUM 8.1 mg/dl (8.4-10.2); CARBON DIOXIDE 22 mmol/L (21-31); CHLORIDE 114 mmol/L (97-110); CREATININE 2.39 mg/dl (0.61-1.24); GLUCOSE 128 mg/dl (70-220); SODIUM 148 mmol/L (135-144); TOTAL PROTEIN 5.7 g/dl (6.1-8.1)
[2018-02-20 06:17] LABS: POTASSIUM 2.9 mmol/L (3.5-5.1)
[2018-02-20] MEDS: POTASSIUM CHLORIDE 100 ML IVPB ×3 (06:34→10:21)
[2018-02-20] MEDS: SODIUM HYPOCHLORITE (1/40) 1 APPLIC BTL IRR ×2 (08:21→21:23)
[2018-02-20] MEDS: LEVOTHYROXINE 100 MCG VIAL IV (08:21)
[2018-02-20] MEDS: FLUCONAZOLE 100 MG TAB PO (08:21)
[2018-02-20] MEDS: BALSAM PERU/CASTOR OIL 60 GM TUBE TOP ×2 (08:21→21:23)
[2018-02-20] MEDS: LACTOBACILLUS RHAMNOSUS CAP GTB (08:21)
[2018-02-20] MEDS ORDERED: POTASSIUM CHLORIDE 20 MEQ POWDER FOR ORAL SOLN PO (09:30)
[2018-02-20] MEDS: SOD CHLORIDE 0.9% 500 ML IV (09:58)
[2018-02-20] MEDS: POTASSIUM CHLORIDE 20 MEQ POWDER FOR ORAL SOLN GTB (09:58)
[2018-02-20] MEDS: BUDESONIDE (NEB) 0.5MG/2ML AMP HHN ×2 (10:04→20:08)
[2018-02-20 10:05] LABS: PHOSPHORUS 6.2 mg/dl (2.5-4.9)
[2018-02-20] MEDS: ALBUMIN HUMAN 25% 100 ML IV (10:50)
[2018-02-20] MEDS: LEVOFLOXACIN 500MG/D5W (PMX) 100 ML IVPB (11:44)
[2018-02-21] MEDS: ALBUTEROL HFA 8 GM INHALER INH ×4 (01:41→20:14)
[2018-02-21] MEDS: IPRATROPIUM (HFA) 12.9 GM INHALER INH ×4 (01:41→20:14)
[2018-02-21 04:58] LABS: ABNORMAL IP MESSAGE 1; HEMATOCRIT 29.7 % (42.0-52.0); HEMOGLOBIN 9.6 g/dl (14.0-18.0); MEAN CORPUSCULAR HEMOGLOBIN 31.8 pg (29.0-33.0); MEAN CORPUSCULAR HGB CONC 32.3 g/dl (32.0-37.0); MEAN CORPUSCULAR VOLUME 98.3 fl (82.0-101.0); MEAN PLATELET VOLUME 13.8 fl (7.4-10.4); PLATELET COUNT 44 10^3/UL (140-415); POSITIVE DIFF @See below; RED BLOOD COUNT 3.02 10^6/ul (4.70-6.10); RED CELL DISTRIBUTION WIDTH 21.8 % (11.5-14.5)
[2018-02-21 04:58] LABS: WHITE BLOOD COUNT 17.1 10^3/ul (4.8-10.8)
[2018-02-21 04:59] LABS: ADD MAN DIFF? YES
[2018-02-21] MEDS: PANTOPRAZOLE 40 MG INJ IV (05:17)
[2018-02-21] MEDS: MIDODRINE 5 MG TAB GTB ×3 (05:17→22:22)
[2018-02-21] MEDS: CLINDAMYCIN 600 MG/D5W (PMX) 50 ML IVPB ×2 (05:17→13:03)
[2018-02-21] MEDS: metroNIDAZOLE 500 MG TAB NGT ×3 (05:17→22:22)
[2018-02-21 05:43] LABS: ALANINE AMINOTRANSFERASE 24 IU/L (13-69); ALBUMIN 2.2 g/dl (3.3-4.9); ALBUMIN/GLOBULIN RATIO 0.61; ALKALINE PHOSPHATASE 273 IU/L (42-121); ANION GAP 11 (5-13); ASPARTATE AMINO TRANSFERASE 23 IU/L (15-46); BILIRUBIN,INDIRECT 0.2 mg/dl (0-1.1); BILIRUBIN,TOTAL 0.2 mg/dl (0.2-1.3); BLOOD UREA NITROGEN 85 mg/dl (7-20); CALCIUM 8.6 mg/dl (8.4-10.2); CARBON DIOXIDE 21 mmol/L (21-31); CHLORIDE 115 mmol/L (97-110); CREATININE 2.21 mg/dl (0.61-1.24); GLUCOSE 88 mg/dl (70-220); SODIUM 147 mmol/L (135-144); TOTAL PROTEIN 5.8 g/dl (6.1-8.1)
[2018-02-21 05:44] LABS: MAGNESIUM 1.8 mg/dl (1.7-2.5)
[2018-02-21] MEDS: LEVOTHYROXINE 100 MCG VIAL IV (06:01)
[2018-02-21 07:48] LABS: ANISOCYTOSIS 2+ (0-0); BAND NEUTROPHILS #M 0.6 10^3/ul (0.0-0.6); BAND NEUTROPHILS % (M) 4 % (0-4); BURR CELLS 1+ (0-0); LYMPHOCYTES #M 0.6 10^3/ul (0.8-2.9); LYMPHOCYTES % (M) 4 % (15-51); METAMYELOCYTES #M 0.1 10^3/ul (0.0-0.0); METAMYELOCYTES %M 1 % (0-0); MONOCYTE #M 0.1 10^3/ul (0.3-0.9); MONOCYTES % (M) 1 % (0-11); MYELOCYTES #M 0.1 10^3/ul (0.0-0.0); MYELOCYTES % (M) 1 % (0-0); PLATELET ESTIMATE DECREASED; POIKILOCYTOSIS 1+ (0-0); POLYCHROMASIA 1+ (0-0); SEG NEUT #M 15.3 10^3/ul (1.6-7.5); SEGMENTED NEUTROPHILS (M) % 89 % (39-77); SMUDGE%M 17 % (0-0)
[2018-02-21] MEDS: BUDESONIDE (NEB) 0.5MG/2ML AMP HHN ×3 (08:24→20:14)
[2018-02-21] MEDS: SODIUM HYPOCHLORITE (1/40) 1 APPLIC BTL IRR ×2 (08:39→22:23)
[2018-02-21] MEDS: FLUCONAZOLE 100 MG TAB PO (08:56)
[2018-02-21] MEDS: BALSAM PERU/CASTOR OIL 60 GM TUBE TOP ×2 (08:56→22:22)
[2018-02-21] MEDS: LACTOBACILLUS RHAMNOSUS CAP GTB (08:56)
[2018-02-21] MEDS: LEVOFLOXACIN 500MG/D5W (PMX) 100 ML IVPB (12:01)
[2018-02-21] MEDS ORDERED: AMIKACIN IV PER PHARMACY XX (14:30)
[2018-02-21] MEDS ORDERED: AMIKACIN 450 MG in SOD CHLORIDE 0.9% 100 ML IVPB (16:00)
[2018-02-21] MEDS: AMIKACIN 300 MG in SOD CHLORIDE 0.9% 100 ML IVPB (16:30)
[2018-02-22] MEDS: IPRATROPIUM (HFA) 12.9 GM INHALER INH ×4 (01:40→20:18)
[2018-02-22] MEDS: ALBUTEROL HFA 8 GM INHALER INH ×4 (01:41→20:18)
[2018-02-22 05:28] LABS: ADD MAN DIFF? NO
[2018-02-22 05:33] LABS: WHITE BLOOD COUNT 15.2 10^3/ul (4.8-10.8)
[2018-02-22 05:33] LABS: ABNORMAL IP MESSAGE 1; BASOPHILS % 0.2 % (0.0-2.0); EOSINOPHILS # 0.1 10^3/ul (0.0-0.5); EOSINOPHILS % 0.3 % (0.0-7.0); HEMATOCRIT 28.5 % (42.0-52.0); HEMOGLOBIN 9.2 g/dl (14.0-18.0); LYMPHOCYTES # 0.8 10^3/ul (0.8-2.9); MEAN CORPUSCULAR HEMOGLOBIN 32.2 pg (29.0-33.0); MEAN CORPUSCULAR HGB CONC 32.3 g/dl (32.0-37.0); MEAN CORPUSCULAR VOLUME 99.7 fl (82.0-101.0); MEAN PLATELET VOLUME 14.3 fl (7.4-10.4); MONOCYTE # 1.1 10^3/ul (0.3-0.9); MONOCYTES % 7.5 % (0.0-11.0); NEUTROPHIL # 12.3 10^3/ul (1.6-7.5); NEUTROPHILS % 81.3 % (39.0-77.0); POSITIVE DIFF @See below; RED BLOOD COUNT 2.86 10^6/ul (4.70-6.10); RED CELL DISTRIBUTION WIDTH 22.5 % (11.5-14.5)
[2018-02-22] MEDS: PANTOPRAZOLE 40 MG INJ IV (05:34)
[2018-02-22] MEDS: metroNIDAZOLE 500 MG TAB NGT ×3 (05:34→21:50)
[2018-02-22] MEDS: MIDODRINE 5 MG TAB GTB ×3 (05:34→21:50)
[2018-02-22 05:51] LABS: PLATELET COUNT 40 10^3/UL (140-415)
[2018-02-22 05:55] LABS: ALANINE AMINOTRANSFERASE 26 IU/L (13-69); ALBUMIN 2.1 g/dl (3.3-4.9); ALBUMIN/GLOBULIN RATIO 0.63; ALKALINE PHOSPHATASE 272 IU/L (42-121); ANION GAP 12 (5-13); ASPARTATE AMINO TRANSFERASE 23 IU/L (15-46); BILIRUBIN,INDIRECT 0.1 mg/dl (0-1.1); BILIRUBIN,TOTAL 0.1 mg/dl (0.2-1.3); BLOOD UREA NITROGEN 84 mg/dl (7-20); CALCIUM 8.4 mg/dl (8.4-10.2); CARBON DIOXIDE 21 mmol/L (21-31); CHLORIDE 116 mmol/L (97-110); CREATININE 2.07 mg/dl (0.61-1.24); GLUCOSE 128 mg/dl (70-220); POTASSIUM 3.3 mmol/L (3.5-5.1); SODIUM 149 mmol/L (135-144); TOTAL PROTEIN 5.4 g/dl (6.1-8.1)
[2018-02-22 05:58] LABS: PHOSPHORUS 5.6 mg/dl (2.5-4.9)
[2018-02-22 05:58] LABS: MAGNESIUM 1.8 mg/dl (1.7-2.5)
[2018-02-22] MEDS: POTASSIUM CHLORIDE 50 ML IVPB ×2 (06:40→07:48)
[2018-02-22] MEDS: MAGNESIUM SULFATE 2 GM/50 ML 50 ML IVPB (07:45)
[2018-02-22] MEDS: LEVOTHYROXINE 100 MCG VIAL IV (07:47)
[2018-02-22 07:51] LABS: ANISOCYTOSIS 1+ (0-0); BAND NEUTROPHILS #M 0.9 10^3/ul (0.0-0.6); BAND NEUTROPHILS % (M) 6 % (0-4); BURR CELLS 1+ (0-0); LYMPHOCYTES #M 1.2 10^3/ul (0.8-2.9); LYMPHOCYTES % (M) 8 % (15-51); MONOCYTE #M 1.2 10^3/ul (0.3-0.9); MONOCYTES % (M) 8 % (0-11); MYELOCYTES #M 0.1 10^3/ul (0.0-0.0); MYELOCYTES % (M) 1 % (0-0); PLATELET ESTIMATE SIG DECREASED; POLYCHROMASIA 1+ (0-0); REACTIVE LYMPHOCYTES #M 0.1 10^3/ul (0.0-0.0); REACTIVE LYMPHOCYTES% (M) 1 % (0-0); SEG NEUT #M 11.7 10^3/ul (1.6-7.5); SEGMENTED NEUTROPHILS (M) % 76 % (39-77); SMUDGE%M 6 % (0-0); TARGET CELLS 1+ (0-0)
[2018-02-22] MEDS: LACTOBACILLUS RHAMNOSUS CAP GTB (08:00)
[2018-02-22] MEDS: BALSAM PERU/CASTOR OIL 60 GM TUBE TOP ×2 (08:00→21:50)
[2018-02-22] MEDS: FLUCONAZOLE 100 MG TAB PO (08:00)
[2018-02-22] MEDS: SODIUM HYPOCHLORITE (1/40) 1 APPLIC BTL IRR ×2 (08:01→21:49)
[2018-02-22] MEDS: BUDESONIDE (NEB) 0.5MG/2ML AMP HHN ×2 (09:13→20:29)
[2018-02-22] MEDS: DEXTROSE 5% 1,000 ML IV ×2 (10:20→21:56)
[2018-02-22] MEDS: LEVOFLOXACIN 500MG/D5W (PMX) 100 ML IVPB (11:55)
[2018-02-22] MEDS: DAPTOMYCIN IVPB (14:04)
[2018-02-22] MEDS: SOD CHLORIDE 0.9% IVPB (14:04)
[2018-02-23] MEDS: IPRATROPIUM (HFA) 12.9 GM INHALER INH ×4 (01:27→20:36)
[2018-02-23] MEDS: ALBUTEROL HFA 8 GM INHALER INH ×4 (01:28→20:36)
[2018-02-23 01:42] LABS: HEPARIN INDUCED PLATELET AB NEGATIVE (NEGATIVE)
[2018-02-23 05:17] LABS: WHITE BLOOD COUNT 19.5 10^3/ul (4.8-10.8)
[2018-02-23 05:17] LABS: ABNORMAL IP MESSAGE 1; HEMATOCRIT 28.9 % (42.0-52.0); HEMOGLOBIN 9.2 g/dl (14.0-18.0); MEAN CORPUSCULAR HEMOGLOBIN 31.8 pg (29.0-33.0); MEAN CORPUSCULAR HGB CONC 31.8 g/dl (32.0-37.0); POSITIVE DIFF @See below; RED BLOOD COUNT 2.89 10^6/ul (4.70-6.10); RED CELL DISTRIBUTION WIDTH 22.3 % (11.5-14.5)
[2018-02-23 05:28] LABS: PLATELET COUNT 38 10^3/UL (140-415)
[2018-02-23 05:29] LABS: ADD MAN DIFF? YES
[2018-02-23 05:31] LABS: PHOSPHORUS 4.7 mg/dl (2.5-4.9)
[2018-02-23 05:31] LABS: MAGNESIUM 2.2 mg/dl (1.7-2.5)
[2018-02-23 05:34] LABS: ANION GAP 12 (5-13); BLOOD UREA NITROGEN 80 mg/dl (7-20); CALCIUM 8.3 mg/dl (8.4-10.2); CARBON DIOXIDE 18 mmol/L (21-31); CHLORIDE 114 mmol/L (97-110); CREATININE 1.72 mg/dl (0.61-1.24); GLUCOSE 106 mg/dl (70-220); SODIUM 144 mmol/L (135-144)
[2018-02-23 05:49] LABS: POTASSIUM 3.6 mmol/L (3.5-5.1)
[2018-02-23] MEDS: MIDODRINE 5 MG TAB GTB ×3 (05:52→21:05)
[2018-02-23] MEDS: PANTOPRAZOLE 40 MG INJ IV (05:52)
[2018-02-23] MEDS: LEVOTHYROXINE 100 MCG VIAL IV (05:52)
[2018-02-23] MEDS: metroNIDAZOLE 500 MG TAB NGT ×3 (05:52→21:05)
[2018-02-23] MEDS: BUDESONIDE (NEB) 0.5MG/2ML AMP HHN ×2 (08:28→20:35)
[2018-02-23 08:45] LABS: ANISOCYTOSIS 2+ (0-0); BAND NEUTROPHILS #M 1.1 10^3/ul (0.0-0.6); BAND NEUTROPHILS % (M) 6 % (0-4); BURR CELLS 1+ (0-0); EOSINOPHILS % (M) 1 % (0-7); LYMPHOCYTES #M 0.1 10^3/ul (0.8-2.9); LYMPHOCYTES % (M) 1 % (15-51); MONOCYTE #M 1.1 10^3/ul (0.3-0.9); MONOCYTES % (M) 6 % (0-11); MYELOCYTES #M 0.3 10^3/ul (0.0-0.0); MYELOCYTES % (M) 2 % (0-0); PLATELET ESTIMATE SIG DECREASED; POIKILOCYTOSIS 1+ (0-0); POLYCHROMASIA 1+ (0-0); PROMYELOCYTES #M 0.1 10^3/ul (0-0); PROMYELOCYTES % (M) 1 % (0-0); REACTIVE LYMPHOCYTES #M 0.5 10^3/ul (0.0-0.0); REACTIVE LYMPHOCYTES% (M) 3 % (0-0); SEG NEUT #M 15.8 10^3/ul (1.6-7.5); SEGMENTED NEUTROPHILS (M) % 80 % (39-77); SMUDGE%M 5 % (0-0); TARGET CELLS 1+ (0-0)
[2018-02-23] MEDS: BALSAM PERU/CASTOR OIL 60 GM TUBE TOP ×2 (09:08→20:26)
[2018-02-23] MEDS: FLUCONAZOLE 100 MG TAB PO (09:08)
[2018-02-23] MEDS: SODIUM HYPOCHLORITE (1/40) 1 APPLIC BTL IRR ×2 (09:08→20:26)
[2018-02-23] MEDS: LACTOBACILLUS RHAMNOSUS CAP GTB (09:08)
[2018-02-23] MEDS: SOD CHLORIDE 0.45% 1,000 ML IV (10:53)
[2018-02-23] MEDS: LEVOFLOXACIN 500MG/D5W (PMX) 100 ML IVPB (11:55)
[2018-02-23] MEDS: SOD CHLORIDE 0.9% IVPB (13:26)
[2018-02-23] MEDS: DAPTOMYCIN IVPB (13:26)
[2018-02-23] MEDS: AMIKACIN 300 MG in SOD CHLORIDE 0.9% 100 ML IVPB (15:49)
[2018-02-24] MEDS: SOD CHLORIDE 0.45% 1,000 ML IV ×2 (00:05→11:49)
[2018-02-24] MEDS: IPRATROPIUM (HFA) 12.9 GM INHALER INH ×4 (01:40→20:07)
[2018-02-24] MEDS: ALBUTEROL HFA 8 GM INHALER INH ×4 (01:40→20:07)
[2018-02-24] MEDS: MIDODRINE 5 MG TAB GTB ×3 (05:03→21:40)
[2018-02-24] MEDS: PANTOPRAZOLE 40 MG INJ IV (05:03)
[2018-02-24] MEDS: metroNIDAZOLE 500 MG TAB NGT ×3 (05:03→21:40)
[2018-02-24 05:36] LABS: ADD MAN DIFF? NO
[2018-02-24 05:41] LABS: ABNORMAL IP MESSAGE 1; BASOPHILS % 0.3 % (0.0-2.0); EOSINOPHILS # 0.1 10^3/ul (0.0-0.5); EOSINOPHILS % 0.4 % (0.0-7.0); HEMATOCRIT 27.4 % (42.0-52.0); HEMOGLOBIN 8.7 g/dl (14.0-18.0); LYMPHOCYTES # 0.9 10^3/ul (0.8-2.9); LYMPHOCYTES % 5.6 % (15.0-51.0); MEAN CORPUSCULAR HEMOGLOBIN 32.2 pg (29.0-33.0); MEAN CORPUSCULAR HGB CONC 31.8 g/dl (32.0-37.0); MEAN CORPUSCULAR VOLUME 101.5 fl (82.0-101.0); MONOCYTE # 1.2 10^3/ul (0.3-0.9); NEUTROPHIL # 12.7 10^3/ul (1.6-7.5); NEUTROPHILS % 81.6 % (39.0-77.0); PLATELET COUNT 36 10^3/UL (140-415); POSITIVE DIFF @See below; RED CELL DISTRIBUTION WIDTH 22.5 % (11.5-14.5)
[2018-02-24 05:41] LABS: WHITE BLOOD COUNT 15.5 10^3/ul (4.8-10.8)
[2018-02-24] MEDS: LEVOTHYROXINE 100 MCG VIAL IV (06:02)
[2018-02-24 06:12] LABS: PHOSPHORUS 4.6 mg/dl (2.5-4.9)
[2018-02-24 06:17] LABS: ANION GAP 11 (5-13); BLOOD UREA NITROGEN 70 mg/dl (7-20); CALCIUM 8.1 mg/dl (8.4-10.2); CARBON DIOXIDE 17 mmol/L (21-31); CHLORIDE 115 mmol/L (97-110); CREATININE 1.51 mg/dl (0.61-1.24); Estimated GFR 47 mL/min (>60); GLUCOSE 104 mg/dl (70-220); POTASSIUM 3.1 mmol/L (3.5-5.1); SODIUM 143 mmol/L (135-144)
[2018-02-24 06:29] LABS: CREATINE KINASE < 20 IU/L (23-200)
[2018-02-24] MEDS: BUDESONIDE (NEB) 0.5MG/2ML AMP HHN ×2 (08:13→20:00)
[2018-02-24] MEDS: POTASSIUM CHLORIDE 100 ML IVPB (08:39)
[2018-02-24] MEDS: LACTOBACILLUS RHAMNOSUS CAP GTB (08:39)
[2018-02-24] MEDS: FLUCONAZOLE 100 MG TAB PO (08:39)
[2018-02-24] MEDS: BALSAM PERU/CASTOR OIL 60 GM TUBE TOP ×2 (08:40→21:40)
[2018-02-24] MEDS: SODIUM HYPOCHLORITE (1/40) 1 APPLIC BTL IRR ×2 (08:40→21:41)
[2018-02-24] MEDS: LEVOFLOXACIN 500MG/D5W (PMX) 100 ML IVPB (11:49)
[2018-02-24 13:47] LABS: ALKALINE PHOSPHATASE 221 U/L (40-115); BONE ISOENZYMES 46 % (28-66); INTESTINAL ISOENZYMES 9 % (1-24); LIVER ISOENZYMES 45 % (25-69); PLACENTAL ISOENZYMES 0 % (0)
[2018-02-24] MEDS: SOD CHLORIDE 0.9% IVPB (14:54)
[2018-02-24] MEDS: DAPTOMYCIN IVPB (14:54)
[2018-02-25] MEDS: ALBUTEROL HFA 8 GM INHALER INH ×4 (01:51→20:20)
[2018-02-25] MEDS: IPRATROPIUM (HFA) 12.9 GM INHALER INH ×4 (01:51→20:20)
[2018-02-25 05:02] LABS: ADD MAN DIFF? NO
[2018-02-25 05:10] LABS: ABNORMAL IP MESSAGE 1; BASOPHILS % 0.1 % (0.0-2.0); EOSINOPHILS # 0.1 10^3/ul (0.0-0.5); EOSINOPHILS % 0.3 % (0.0-7.0); HEMATOCRIT 27.1 % (42.0-52.0); HEMOGLOBIN 8.6 g/dl (14.0-18.0); LYMPHOCYTES # 0.7 10^3/ul (0.8-2.9); LYMPHOCYTES % 4.6 % (15.0-51.0); MEAN CORPUSCULAR HEMOGLOBIN 32.2 pg (29.0-33.0); MEAN CORPUSCULAR HGB CONC 31.7 g/dl (32.0-37.0); MEAN CORPUSCULAR VOLUME 101.5 fl (82.0-101.0); MONOCYTE # 1.3 10^3/ul (0.3-0.9); MONOCYTES % 9.1 % (0.0-11.0); NEUTROPHIL # 11.7 10^3/ul (1.6-7.5); NEUTROPHILS % 81.9 % (39.0-77.0); PLATELET COUNT 36 10^3/UL (140-415); POSITIVE DIFF @See below; RED BLOOD COUNT 2.67 10^6/ul (4.70-6.10); RED CELL DISTRIBUTION WIDTH 22.4 % (11.5-14.5)
[2018-02-25 05:10] LABS: WHITE BLOOD COUNT 14.4 10^3/ul (4.8-10.8)
[2018-02-25 05:30] LABS: ANION GAP 12 (5-13); BLOOD UREA NITROGEN 68 mg/dl (7-20); CALCIUM 8.5 mg/dl (8.4-10.2); CARBON DIOXIDE 18 mmol/L (21-31); CHLORIDE 114 mmol/L (97-110); CREATININE 1.36 mg/dl (0.61-1.24); Estimated GFR 53 mL/min (>60); GLUCOSE 121 mg/dl (70-220); POTASSIUM 3.1 mmol/L (3.5-5.1); SODIUM 144 mmol/L (135-144)
[2018-02-25 05:30] LABS: PHOSPHORUS 4.6 mg/dl (2.5-4.9)
[2018-02-25] MEDS: metroNIDAZOLE 500 MG TAB NGT ×3 (05:58→21:47)
[2018-02-25] MEDS: LANSOPRAZOLE 30 MG CAP PO (05:58)
[2018-02-25] MEDS: LEVOTHYROXINE 88 MCG TAB GTB (05:59)
[2018-02-25] MEDS: MIDODRINE 5 MG TAB GTB ×4 (05:59→21:47)
[2018-02-25] MEDS: LACTOBACILLUS RHAMNOSUS CAP GTB (08:17)
[2018-02-25] MEDS: FLUCONAZOLE 100 MG TAB PO (08:17)
[2018-02-25] MEDS: BALSAM PERU/CASTOR OIL 60 GM TUBE TOP ×2 (08:17→21:47)
[2018-02-25] MEDS: POTASSIUM CHLORIDE 20 MEQ POWDER FOR ORAL SOLN GTB (08:17)
[2018-02-25] MEDS: HYDROCODONE/APAP (5/325) TAB PO ×2 (08:46→14:23)
[2018-02-25] MEDS: BUDESONIDE (NEB) 0.5MG/2ML AMP HHN ×2 (09:00→20:20)
[2018-02-25] MEDS: LEVOFLOXACIN 500MG/D5W (PMX) 100 ML IVPB (12:17)
[2018-02-25] MEDS: SODIUM HYPOCHLORITE (1/40) 1 APPLIC BTL IRR ×2 (13:30→21:47)
[2018-02-25] MEDS: SOD CHLORIDE 0.9% IVPB (13:30)
[2018-02-25] MEDS: DAPTOMYCIN IVPB (13:30)
[2018-02-25] MEDS: AMIKACIN 300 MG in SOD CHLORIDE 0.9% 100 ML IVPB (16:10)
[2018-02-25 19:51] LABS: AMIKACIN TROUGH 5.5 mg/L (4.0-8.0)
[2018-02-26] MEDS: ALBUTEROL HFA 8 GM INHALER INH ×4 (01:33→20:15)
[2018-02-26] MEDS: IPRATROPIUM (HFA) 12.9 GM INHALER INH ×4 (01:33→20:15)
[2018-02-26 05:03] LABS: ADD MAN DIFF? NO
[2018-02-26 05:10] LABS: ABNORMAL IP MESSAGE 1; BASOPHILS % 0.3 % (0.0-2.0); EOSINOPHILS # 0.1 10^3/ul (0.0-0.5); EOSINOPHILS % 0.8 % (0.0-7.0); HEMATOCRIT 25.9 % (42.0-52.0); HEMOGLOBIN 8.3 g/dl (14.0-18.0); LYMPHOCYTES # 0.8 10^3/ul (0.8-2.9); LYMPHOCYTES % 5.4 % (15.0-51.0); MEAN CORPUSCULAR HEMOGLOBIN 33.1 pg (29.0-33.0); MEAN CORPUSCULAR VOLUME 103.2 fl (82.0-101.0); MEAN PLATELET VOLUME 14.1 fl (7.4-10.4); MONOCYTE # 1.6 10^3/ul (0.3-0.9); MONOCYTES % 11.4 % (0.0-11.0); NEUTROPHIL # 11.1 10^3/ul (1.6-7.5); NEUTROPHILS % 78.4 % (39.0-77.0); PLATELET COUNT 35 10^3/UL (140-415); POSITIVE DIFF @See below; RED BLOOD COUNT 2.51 10^6/ul (4.70-6.10); RED CELL DISTRIBUTION WIDTH 22.9 % (11.5-14.5)
[2018-02-26 05:10] LABS: WHITE BLOOD COUNT 14.2 10^3/ul (4.8-10.8)
[2018-02-26 05:31] LABS: ANION GAP 8 (5-13); BLOOD UREA NITROGEN 68 mg/dl (7-20); CALCIUM 8.5 mg/dl (8.4-10.2); CARBON DIOXIDE 19 mmol/L (21-31); CHLORIDE 118 mmol/L (97-110); CREATININE 1.25 mg/dl (0.61-1.24); Estimated GFR 59 mL/min (>60); GLUCOSE 99 mg/dl (70-220); POTASSIUM 3.7 mmol/L (3.5-5.1); SODIUM 145 mmol/L (135-144)
[2018-02-26] MEDS: LEVOTHYROXINE 88 MCG TAB GTB (06:50)
[2018-02-26] MEDS: metroNIDAZOLE 500 MG TAB NGT ×3 (06:50→21:17)
[2018-02-26] MEDS: MIDODRINE 5 MG TAB GTB ×3 (06:50→21:17)
[2018-02-26] MEDS: LANSOPRAZOLE 30 MG CAP PO (06:50)
[2018-02-26] MEDS: SOD CHLORIDE 0.9% 500 ML IV (07:52)
[2018-02-26] MEDS: BUDESONIDE (NEB) 0.5MG/2ML AMP HHN ×2 (08:40→20:15)
[2018-02-26] MEDS: FLUCONAZOLE 100 MG TAB PO (09:26)
[2018-02-26] MEDS: BALSAM PERU/CASTOR OIL 60 GM TUBE TOP ×2 (09:26→21:18)
[2018-02-26] MEDS: SODIUM HYPOCHLORITE (1/40) 1 APPLIC BTL IRR ×2 (09:26→21:18)
[2018-02-26] MEDS: LACTOBACILLUS RHAMNOSUS CAP GTB (09:26)
[2018-02-26] MEDS: LEVOFLOXACIN 500MG/D5W (PMX) 100 ML IVPB (11:49)
[2018-02-26] MEDS: DAPTOMYCIN IVPB (13:57)
[2018-02-26] MEDS: SOD CHLORIDE 0.9% IVPB (13:57)
[2018-02-27] MEDS: ALBUTEROL HFA 8 GM INHALER INH ×4 (02:04→21:11)
[2018-02-27] MEDS: IPRATROPIUM (HFA) 12.9 GM INHALER INH ×4 (02:04→21:11)
[2018-02-27 05:35] LABS: ADD MAN DIFF? NO
[2018-02-27 05:38] LABS: ABNORMAL IP MESSAGE 1; BASOPHILS % 0.3 % (0.0-2.0); EOSINOPHILS % 0.1 % (0.0-7.0); HEMATOCRIT 24.3 % (42.0-52.0); HEMOGLOBIN 7.7 g/dl (14.0-18.0); LYMPHOCYTES # 0.9 10^3/ul (0.8-2.9); LYMPHOCYTES % 6.7 % (15.0-51.0); MEAN CORPUSCULAR HEMOGLOBIN 32.9 pg (29.0-33.0); MEAN CORPUSCULAR HGB CONC 31.7 g/dl (32.0-37.0); MEAN CORPUSCULAR VOLUME 103.8 fl (82.0-101.0); MEAN PLATELET VOLUME 13.2 fl (7.4-10.4); MONOCYTE # 1.6 10^3/ul (0.3-0.9); MONOCYTES % 11.8 % (0.0-11.0); NEUTROPHIL # 10.7 10^3/ul (1.6-7.5); NEUTROPHILS % 78.7 % (39.0-77.0); POSITIVE DIFF @See below; RED BLOOD COUNT 2.34 10^6/ul (4.70-6.10); RED CELL DISTRIBUTION WIDTH 23.1 % (11.5-14.5)
[2018-02-27 05:38] LABS: WHITE BLOOD COUNT 13.6 10^3/ul (4.8-10.8)
[2018-02-27] MEDS: MIDODRINE 5 MG TAB GTB ×3 (05:40→21:01)
[2018-02-27] MEDS: LANSOPRAZOLE 30 MG CAP PO (05:40)
[2018-02-27] MEDS: LEVOTHYROXINE 88 MCG TAB GTB (05:40)
[2018-02-27] MEDS: metroNIDAZOLE 500 MG TAB NGT ×3 (05:40→21:00)
[2018-02-27 05:48] LABS: PLATELET COUNT 41 10^3/UL (140-415)
[2018-02-27 07:20] LABS: ANION GAP 8 (5-13); BLOOD UREA NITROGEN 67 mg/dl (7-20); CALCIUM 8.6 mg/dl (8.4-10.2); CARBON DIOXIDE 20 mmol/L (21-31); CHLORIDE 118 mmol/L (97-110); CREATININE 1.27 mg/dl (0.61-1.24); Estimated GFR 58 mL/min (>60); GLUCOSE 132 mg/dl (70-220); POTASSIUM 3.1 mmol/L (3.5-5.1); SODIUM 146 mmol/L (135-144)
[2018-02-27] MEDS: BUDESONIDE (NEB) 0.5MG/2ML AMP HHN ×2 (08:15→21:05)
[2018-02-27] MEDS: LACTOBACILLUS RHAMNOSUS CAP GTB (09:16)
[2018-02-27] MEDS: FLUCONAZOLE 100 MG TAB PO (09:16)
[2018-02-27] MEDS: BALSAM PERU/CASTOR OIL 60 GM TUBE TOP ×2 (09:17→21:01)
[2018-02-27] MEDS: SODIUM HYPOCHLORITE (1/40) 1 APPLIC BTL IRR ×2 (09:18→21:01)
[2018-02-27] MEDS: SOD CHLORIDE 0.9% 250 ML IV* (11:17)
[2018-02-27] MEDS: LEVOFLOXACIN 500MG/D5W (PMX) 100 ML IVPB (11:35)
[2018-02-27] MEDS: ACETAMINOPHEN 325 MG TAB PO (11:35)
[2018-02-27] MEDS: POTASSIUM CHLORIDE 50 ML IVPB ×3 (11:36→13:39)
[2018-02-27 13:34] LABS: IMMEDIATE SPIN CROSSMATCH 1 1
[2018-02-27] MEDS: DAPTOMYCIN IVPB (13:40)
[2018-02-27] MEDS: SOD CHLORIDE 0.9% IVPB (13:40)
[2018-02-27] MEDS: AMIKACIN 425 MG in SOD CHLORIDE 0.9% 100 ML IVPB (16:33)
[2018-02-28] MEDS: IPRATROPIUM (HFA) 12.9 GM INHALER INH ×4 (01:18→20:28)
[2018-02-28] MEDS: ALBUTEROL HFA 8 GM INHALER INH ×4 (01:19→20:28)
[2018-02-28 05:20] LABS: ADD MAN DIFF? NO
[2018-02-28 05:30] LABS: ABNORMAL IP MESSAGE 1; BASOPHIL # 0.1 10^3/ul (0.0-0.1); BASOPHILS % 0.4 % (0.0-2.0); EOSINOPHILS % 0.3 % (0.0-7.0); HEMATOCRIT 27.7 % (42.0-52.0); LYMPHOCYTES # 0.8 10^3/ul (0.8-2.9); LYMPHOCYTES % 6.3 % (15.0-51.0); MEAN CORPUSCULAR HEMOGLOBIN 32.5 pg (29.0-33.0); MEAN CORPUSCULAR HGB CONC 32.5 g/dl (32.0-37.0); MEAN PLATELET VOLUME 13.6 fl (7.4-10.4); MONOCYTE # 1.5 10^3/ul (0.3-0.9); NEUTROPHIL # 9.8 10^3/ul (1.6-7.5); NEUTROPHILS % 78.1 % (39.0-77.0); PLATELET COUNT 44 10^3/UL (140-415); POSITIVE DIFF @See below; RED BLOOD COUNT 2.77 10^6/ul (4.70-6.10); RED CELL DISTRIBUTION WIDTH 22.9 % (11.5-14.5)
[2018-02-28 05:30] LABS: WHITE BLOOD COUNT 12.5 10^3/ul (4.8-10.8)
[2018-02-28 05:58] LABS: ANION GAP 10 (5-13); BLOOD UREA NITROGEN 72 mg/dl (7-20); CALCIUM 8.3 mg/dl (8.4-10.2); CARBON DIOXIDE 18 mmol/L (21-31); CHLORIDE 120 mmol/L (97-110); CREATININE 1.16 mg/dl (0.61-1.24); Estimated GFR > 60 mL/min (>60); GLUCOSE 112 mg/dl (70-220); POTASSIUM 3.1 mmol/L (3.5-5.1); SODIUM 148 mmol/L (135-144)
[2018-02-28] MEDS: metroNIDAZOLE 500 MG TAB NGT ×3 (05:58→21:33)
[2018-02-28] MEDS: LANSOPRAZOLE 30 MG CAP PO (05:58)
[2018-02-28] MEDS: MIDODRINE 5 MG TAB GTB ×3 (05:58→21:33)
[2018-02-28] MEDS: LEVOTHYROXINE 88 MCG TAB GTB (07:48)
[2018-02-28] MEDS: BUDESONIDE (NEB) 0.5MG/2ML AMP HHN ×2 (08:29→20:28)
[2018-02-28] MEDS: POTASSIUM CHLORIDE 100 ML IVPB ×3 (09:05→13:19)
[2018-02-28] MEDS: FLUCONAZOLE 100 MG TAB PO (09:05)
[2018-02-28] MEDS: LACTOBACILLUS RHAMNOSUS CAP GTB (09:05)
[2018-02-28] MEDS: DEXTROSE 5% 1,000 ML IV (09:06)
[2018-02-28] MEDS: BALSAM PERU/CASTOR OIL 60 GM TUBE TOP ×2 (09:07→21:33)
[2018-02-28] MEDS: SODIUM HYPOCHLORITE (1/40) 1 APPLIC BTL IRR ×2 (09:07→21:33)
[2018-02-28] MEDS: HYDROCODONE/APAP (5/325) TAB PO (11:24)
[2018-02-28] MEDS: LEVOFLOXACIN 500MG/D5W (PMX) 100 ML IVPB (11:25)
[2018-02-28] MEDS: DAPTOMYCIN IVPB (13:18)
[2018-02-28] MEDS: SOD CHLORIDE 0.9% IVPB (13:18)
[2018-03-01] MEDS: IPRATROPIUM (HFA) 12.9 GM INHALER INH ×3 (01:44→13:27)
[2018-03-01] MEDS: ALBUTEROL HFA 8 GM INHALER INH ×3 (01:44→13:27)
[2018-03-01 05:12] LABS: ADD MAN DIFF? NO
[2018-03-01 05:20] LABS: WHITE BLOOD COUNT 13.7 10^3/ul (4.8-10.8)
[2018-03-01 05:20] LABS: ABNORMAL IP MESSAGE 1; BASOPHIL # 0.1 10^3/ul (0.0-0.1); BASOPHILS % 0.4 % (0.0-2.0); EOSINOPHILS # 0.1 10^3/ul (0.0-0.5); EOSINOPHILS % 0.7 % (0.0-7.0); HEMATOCRIT 28.3 % (42.0-52.0); HEMOGLOBIN 9.1 g/dl (14.0-18.0); LYMPHOCYTES # 1.1 10^3/ul (0.8-2.9); LYMPHOCYTES % 8.2 % (15.0-51.0); MEAN CORPUSCULAR HEMOGLOBIN 32.3 pg (29.0-33.0); MEAN CORPUSCULAR HGB CONC 32.2 g/dl (32.0-37.0); MEAN CORPUSCULAR VOLUME 100.4 fl (82.0-101.0); MEAN PLATELET VOLUME 13.2 fl (7.4-10.4); MONOCYTE # 1.9 10^3/ul (0.3-0.9); MONOCYTES % 13.6 % (0.0-11.0); NEUTROPHIL # 10.1 10^3/ul (1.6-7.5); NEUTROPHILS % 73.7 % (39.0-77.0); PLATELET COUNT 42 10^3/UL (140-415); POSITIVE DIFF @See below; RED BLOOD COUNT 2.82 10^6/ul (4.70-6.10); RED CELL DISTRIBUTION WIDTH 22.5 % (11.5-14.5)
[2018-03-01 05:56] LABS: ANION GAP 9 (5-13); BLOOD UREA NITROGEN 68 mg/dl (7-20); CALCIUM 8.2 mg/dl (8.4-10.2); CARBON DIOXIDE 17 mmol/L (21-31); CHLORIDE 119 mmol/L (97-110); CREATININE 1.07 mg/dl (0.61-1.24); Estimated GFR > 60 mL/min (>60); GLUCOSE 109 mg/dl (70-220); POTASSIUM 3.7 mmol/L (3.5-5.1); SODIUM 145 mmol/L (135-144)
[2018-03-01 05:58] LABS: MAGNESIUM 1.9 mg/dl (1.7-2.5)
[2018-03-01 05:58] LABS: PHOSPHORUS 3.1 mg/dl (2.5-4.9)
[2018-03-01] MEDS: LANSOPRAZOLE 30 MG CAP PO (06:06)
[2018-03-01] MEDS: MIDODRINE 5 MG TAB GTB ×2 (06:06→14:56)
[2018-03-01] MEDS: metroNIDAZOLE 500 MG TAB NGT ×2 (06:06→14:56)
[2018-03-01] MEDS: LEVOTHYROXINE 88 MCG TAB GTB ×2 (08:12→08:13)
[2018-03-01] MEDS: ACETAMINOPHEN 325 MG TAB PO (08:12)
[2018-03-01] MEDS: BUDESONIDE (NEB) 0.5MG/2ML AMP HHN (08:18)
[2018-03-01] MEDS: LACTOBACILLUS RHAMNOSUS CAP GTB (10:22)
[2018-03-01] MEDS: FLUCONAZOLE 100 MG TAB PO (10:22)
[2018-03-01] MEDS: SODIUM HYPOCHLORITE (1/40) 1 APPLIC BTL IRR (10:24)
[2018-03-01] MEDS: BALSAM PERU/CASTOR OIL 60 GM TUBE TOP (10:24)
[2018-03-01] MEDS: LEVOFLOXACIN 500MG/D5W (PMX) 100 ML IVPB (12:15)
[2018-03-01 12:25] LABS: LACTIC ACID 1.5 mmol/L (0.5-2.0)
[2018-03-01] MEDS: DAPTOMYCIN IVPB (13:58)
[2018-03-01] MEDS: SOD CHLORIDE 0.9% IVPB (13:58)
[2018-03-01] MEDS ORDERED: LIDOCAINE 1% (MPF) 5 ML VIAL SC (16:00)
[2018-03-01] MEDS: AMIKACIN 425 MG in SOD CHLORIDE 0.9% 100 ML IVPB (16:14)
[2018-03-01] MEDS ORDERED: LORAZEPAM 2 MG INJ IV (17:30)
[2018-03-01] MEDS: morphine (DRIP) 100 MG/100 ML 100 ML IV (17:38)
[2018-03-01] MEDS: LORAZEPAM 2 MG INJ IV (18:01)
[2018-03-02] MEDS: morphine (DRIP) 100 MG/100 ML 100 ML IV ×3 (02:01→18:52)
[2018-03-03] MEDS: morphine (DRIP) 100 MG/100 ML 100 ML IV ×3 (03:09→17:55)
[2018-03-04] MEDS: morphine (DRIP) 100 MG/100 ML 100 ML IV (01:08)
== END 2018-03-04 06:20 | disposition expired | DRG 870 ==
LOC: PP2 03-02 02:30 → E/R 09:59 → PP2 03-02 05:53 → ICU 11:12
PROC: 02HV33Z Insertion of Infusion Device into Superior Vena Cava, Percutaneous Approach (ICD-10-PCS; principal; 2018-02-14)
PROC: 5A1955Z Respiratory Ventilation, Greater than 96 Consecutive Hours (ICD-10-PCS; 2018-02-14)
PROC: 30233N1 Transfusion of Nonautologous Red Blood Cells into Peripheral Vein, Percutaneous Approach (ICD-10-PCS; 2018-02-14)
PROC: 0W9B3ZX Drainage of Left Pleural Cavity, Percutaneous Approach, Diagnostic (ICD-10-PCS; 2018-02-16)
DX: A41.9 Sepsis, unspecified organism (principal); L89.324 Pressure ulcer of left buttock, stage 4; L89.314 Pressure ulcer of right buttock, stage 4; L89.154 Pressure ulcer of sacral region, stage 4; R65.21 Severe sepsis with septic shock; J69.0 Pneumonitis due to inhalation of food and vomit; N17.0 Acute kidney failure with tubular necrosis; J96.21 Acute and chronic respiratory failure with hypoxia; J96.22 Acute and chronic respiratory failure with hypercapnia; G93.40 Encephalopathy, unspecified; D68.9 Coagulation defect, unspecified; B37.49 Other urogenital candidiasis; E87.2 Acidosis; J90 Pleural effusion, not elsewhere classified; I12.9 Hypertensive chronic kidney disease with stage 1 through stage 4 chronic kidney disease, or unspecified chronic kidney disease; N18.3 Chronic kidney disease, stage 3 (moderate); E87.5 Hyperkalemia; G40.909 Epilepsy, unspecified, not intractable, without status epilepticus; G80.9 Cerebral palsy, unspecified; E03.9 Hypothyroidism, unspecified; D64.9 Anemia, unspecified; E83.51 Hypocalcemia; E87.6 Hypokalemia; Z66 Do not resuscitate; Z99.11 Dependence on respirator [ventilator] status; Z93.0 Tracheostomy status; Z93.1 Gastrostomy status
CPT/HCPCS: 36415; 36430; 36600; 71045; 76700; 76705; 76775; 76942; 80048; 80053; 80061; 80150; 81001; 81003; 82270; 82533; 82550; 82570; 82607; 82728; 82746; 82803; 82962; 83036; 83540; 83605; 83735; 84080; 84100; 84157; 84300; 84436; 84443; 84479; 84484; 84560; 85025; 85610; 85730; 86022; 86850; 86900; 86901; 86920; 87040; 87070; 87081; 87086; 87102; 87116; 89190; 89220; 90686; 93005; 93306; 94002; 94003; 94640; 94664; 96374; 96375; 99291-25